=== PATIENT | male | born 1955 | race Caucasian/White ===

== ENCOUNTER 2018-05-02 12:57 | Outpatient (CLI) | payer MEDICAID ==
[~2018-05-02] VITALS: Ht 180.3 cm; Wt 90.7 kg
[2018-05-02 14:44] LABS: BASOPHILS % (AUTO) 0.6 % (0-1); EOSINOPHILS # (AUTO) 0.2 X10'3 (0-0.9); EOSINOPHILS % (AUTO) 2.4 % (0-6); LYMPHOCYTES # (AUTO) 2.4 X10'3 (1.1-4.8); LYMPHOCYTES % (AUTO) 33.2 % (21-51); MEAN CORPUSCULAR HEMOGLOBIN 32.3 PG (27.0-31.0); MEAN CORPUSCULAR HGB CONC 34.4 % (33.0-36.5); MEAN CORPUSCULAR VOLUME 93.8 FL (78-98); MEAN PLATELET VOLUME 8.4 FL (7.4-10.4); MONOCYTES # (AUTO) 0.6 X10'3 (0-0.9); MONOCYTES % (AUTO) 7.8 % (2-12); PRE OP HEMATOCRIT 43.6 % (42.0-52.0); PRE OP PLATELET COUNT 299 X10'3 (140-440); RED BLOOD COUNT 4.65 X10'6 (4.70-6.10); RED CELL DISTRIBUTION WIDTH 14.3 % (11.5-14.5)
[2018-05-02 15:02] LABS: ALBUMIN 3.8 G/DL (3.4-5.0); ALBUMIN/GLOBULIN RATIO 1.2 (1.1-1.5); ALKALINE PHOSPHATASE 119 IU/L (46-116); BLOOD UREA NITROGEN 19 MG/DL (7-18); BUN/CREATININE RATIO 12.8 (5.4-32.0); CALCIUM 8.8 MG/DL (8.5-10.1); CHLORIDE 106 MMOL/L (99-107); CREATININE 1.49 MG/DL (0.60-1.10); PRE OP ALT 62 U/L (30-65); PRE OP ANION GAP 11 (8-16); PRE OP AST 26 U/L (10-37); PRE OP BILIRUB, TOTAL 0.8 MG/DL (0.0-1.0); PRE OP GLUCOSE 112 MG/DL (70-104); PRE OP POTASSIUM 4.1 MMOL/L (3.4-5.1); PRE OP SODIUM 140 MMOL/L (135-145); TOTAL CARBON DIOXIDE 23.2 MMOL/L (24-32); eGFR 48 ML/MIN
[2018-05-02] MEDS ORDERED: TRIA15CR61 TOP (16:40)
[2018-05-02] MEDS ORDERED: METH2.5T PO (16:40)
[2018-05-02] MEDS ORDERED: ASPI-1265 PO (16:40)
[2018-05-02] MEDS ORDERED: FOLI1TAB16 PO (16:40)
[2018-05-02] MEDS ORDERED: ATOR40TA71 PO (16:40)
[2018-05-02] MEDS ORDERED: CHOL10002 PO (16:40)
[2018-05-08] MEDS ORDERED: ringers solution, lacted 1,000 ML IV SCH (05:00)
[2018-05-08] MEDS ORDERED: Cefazolin 2GM/50ML dext iso,osmotic IVPB IV ONE (05:30)
[2018-05-08] MEDS ORDERED: vancomycin inj 1,500 MG in normal saline 300ml IV soln IV ONE (05:30)
[2018-05-08] MEDS ORDERED: famotidine 20mg tablet PO ONE (05:30)
[2018-05-08] MEDS ORDERED: metoclopramide 5 mg/ml inj IV ONE (05:30)
[2018-05-08] MEDS ORDERED: acetaminophen 325mg tablet PO ONE (05:30)
[2018-05-08] MEDS ORDERED: gabapentin 300mg capsule PO ONE (05:30)
[2018-05-08] MEDS ORDERED: oxyCODONE SR 10mg (sust. release) tab -2 tabs (20mg) PO ONE (05:30)
[2018-05-08] MEDS ORDERED: tranexamic acid inj. 1,000 MG in normal saline 100ml IV soln 90 ML IV ONE (05:30)
== END 2018-05-02 23:59 | disposition home or self-care (01) ==
LOC: PRE-OP 12:57 → EDSTATUS 05-08 08:30
PROVIDERS: ATTEND Orthopaedic Surgery
DX: Z01.818 Encounter for other preprocedural examination (principal); M17.11 Unilateral primary osteoarthritis, right knee; Z79.82 Long term (current) use of aspirin; Z87.891 Personal history of nicotine dependence
CPT/HCPCS: 36415; 71046; 80053; 85025; 93005